=== PATIENT | female | born 1965 | race Caucasian/White ===

== ENCOUNTER → 2023-07-09 11:56 | Outpatient (REF) | payer OTHER, SELFPAY | LOC: WDC 11:56 | PROVIDERS: ATTENDING PHYSICIAN Nurse Practitioner Primary Care | DX: Z12.31 Encounter for screening mammogram for malignant neoplasm of breast (principal) | CPT/HCPCS: 77063; 77067 ==

== ENCOUNTER 2023-08-05 10:26 | Emergency (ER) | payer OTHER, SELFPAY ==
[2023-08-05 10:34] VITALS: BP 121/84
[2023-08-05] MEDS: MOTRIN 600 MG PO (12:45)
--- NOTE | 2023-08-05 13:21 | ED.MUSCINJ ---
HPI-Injury
General
Chief Complaint: Fall
Source: patient
Exam Limitations: none
Time Seen by Provider: 08/05/23 11:35
History of Present Illness-Injury
Initial Injury comments:
58-year-old female presents after fall sustained down the steps this morning. She slid down a couple steps and has left rib and left elbow pain. No significant headache. No loss of consciousness. No abdominal pain. No shortness of breath.
Past History
Past History
ED Past Medical History: Other (Migraine headache, intussusception, gastric bypass, kidney stone, previous nephrostomy, status post cholecystectomy, Anemia)
ED Past Surgical History: Urological and Other (Intussusception, gastric bypass)
Social History
Tobacco: Smoker (Social)
Alcohol: None
Personal:
Living: with family
Employment: Employed
Family History
Family History: Other (Migraine ); Negative Diabetes, Hypertension or CAD
Phy Exam
Physical Exam
Physical Exam:
General: Well-appearing female no acute respiratory distress
HEENT: Normocephalic atraumatic
Heart: Regular rate and rhythm no murmur
Lungs: Clear no wheeze breath sounds heard throughout
Abdomen soft nontender nondistended
Extremities: No cyanosis
Musculoskeletal exam: Patient is tender of left posterior lateral ribs and left elbow
Injury Course
Orders/Labs/Results
Orders:
Orders
08/05/23 11:30
CR Ribs-left 3 Vw W/pa Chest Urgent
Comment:
Reason For Exam: fall, injury,L rib pain
08/05/23 11:40
CR Elbow - Left Min 3 Views Urgent
Comment:
Reason For Exam: fall
08/05/23 12:38
Ibuprofen [Motrin] 600 mg .ROUTE .STK-MED ONE
08/05/23 12:43
Ibuprofen [Motrin] 600 mg PO NOW STA
MDM/Problems Addressed
Differential Diagnosis Includes:
Mechanical fall with left posterior rib pain and left elbow pain. Consider contusion versus fracture
X-rays of left ribs and left elbow were personally visualized and are negative for acute finding. Patient reassured. Ibuprofen or Tylenol for contusion. Stable for discharge
*Critical Care Note
Total Time (30-74mins, 75-104mins- exclusive of procedures): Not Applicable
ED Attending Note
-
Portions of this chart may have been created with voice recognition software.� Occasional wrong word or��sound alike� substitutions may have occurred due to the inherent limitations of voice recognition software.
Discharge Plan
Departure
Patient Disposition: Home (Routine Discharge)
Date of Disposition: 08/05/23
Time of Disposition: 13:23
Patient with high blood pressure during this ER visit?: No
Discharge Problem:
Contusion
Instructions: Contusion (DC)
Prescriptions:
No Action
dextroamphetamine-amphetamine [Adderall] 20 MG tablet
20 mg PO TID
acetaminophen 325 MG tablet
650 mg PO Q4HPRN PRN (Reason: Pain)
polyethylene glycol 3350 17 GRAMS powder in packet
17 grams PO PRN PRN (Reason: Constipation)
bupropion HCl 150 MG tablet sustained-release 12 hr
300 mg PO DAILY
cetirizine 10 MG tablet
10 mg PO HS
montelukast 10 MG tablet
10 mg PO DAILY
propranolol 20 MG tablet
20 mg PO PRN PRN (Reason: anxiety)
fluoxetine 20 MG capsule
40 mg PO DAILY
Referrals:
Elvis Sapp MD [Family Provider] -
Activity Restrictions/Additional Instructions:
Rest. Use ibuprofen or Tylenol. Avoid heavy lifting peer return if worse otherwise follow-up with your family doctor
Interventions
Interventions:
*Risk Screen - Suicide Last Done: 06/25/24 10:34
*General Assessment Last Done: 08/05/23 10:34
*Neglect/Abuse Screening Last Done: 08/05/23 10:34
ED- Fall Risk Assessment Last Done: 08/05/23 11:35
ED-Musculoskeletal Assessment Last Done: 08/05/23 11:35
ED- Neurological Assessment Last Done: 08/05/23 11:35
ED-Skin Assessment Last Done: 08/05/23 11:35
Discharge Date and Time
Print Language: ITALIAN
[2023-08-05 13:30] VITALS: BP 125/80
== END 2023-08-05 13:32 | disposition home or self-care (01) ==
LOC: EMR 10:26
PROVIDERS: EMERGENCY PHYSICIAN Emergency Medicine; FAMILY PHYSICIAN Internal Medicine Geriatric Medicine
DX: S50.02XA Contusion of left elbow, initial encounter (principal); R07.81 Pleurodynia; W10.9XXA Fall (on) (from) unspecified stairs and steps, initial encounter; G43.909 Migraine, unspecified, not intractable, without status migrainosus; D64.9 Anemia, unspecified; F17.200 Nicotine dependence, unspecified, uncomplicated; Z87.442 Personal history of urinary calculi; Z98.84 Bariatric surgery status; Z90.49 Acquired absence of other specified parts of digestive tract; Z88.6 Allergy status to analgesic agent; Z88.5 Allergy status to narcotic agent; Z88.8 Allergy status to other drugs, medicaments and biological substances
CPT/HCPCS: 99284; 71101; 73080

== ENCOUNTER → 2023-08-12 08:23 | Outpatient (REF) | payer OTHER, SELFPAY | LOC: RAD 08:23 | PROVIDERS: ATTENDING PHYSICIAN Internal Medicine Geriatric Medicine | DX: R07.81 Pleurodynia (principal) | CPT/HCPCS: 71046; 71100 ==

== ENCOUNTER → 2024-06-08 14:03 | Outpatient (REF) | payer OTHER, SELFPAY | LOC: HWRAD 14:03 | PROVIDERS: ATTENDING PHYSICIAN Nurse Practitioner Primary Care | DX: R22.42 Localized swelling, mass and lump, left lower limb (principal); Z91.81 History of falling; R31.29 Other microscopic hematuria; Z80.52 Family history of malignant neoplasm of bladder | CPT/HCPCS: 76770; 76882 ==

== ENCOUNTER → 2024-07-21 09:50 | Outpatient (REF) | payer OTHER, SELFPAY | LOC: HWWDC 09:50 | PROVIDERS: ATTENDING PHYSICIAN Obstetrics & Gynecology Gynecology; FAMILY PHYSICIAN Nurse Practitioner Primary Care | DX: Z78.0 Asymptomatic menopausal state (principal); Z12.31 Encounter for screening mammogram for malignant neoplasm of breast | CPT/HCPCS: 77063; 77067; 77080 ==

== ENCOUNTER → 2024-08-05 09:39 | Outpatient (REF) | payer OTHER, SELFPAY | LOC: WDC 09:39 | PROVIDERS: ATTENDING PHYSICIAN Obstetrics & Gynecology Gynecology; FAMILY PHYSICIAN Nurse Practitioner Primary Care | DX: R92.8 Other abnormal and inconclusive findings on diagnostic imaging of breast (principal) | CPT/HCPCS: 77065 ==

== ENCOUNTER 2024-10-08 09:47 | Outpatient (RCR) | payer OTHER, SELFPAY ==
[2024-09-28] MEDS: VENOFER 110 MG IV (10:23)
[2024-09-28 10:37] VITALS: BP 136/62
[2024-09-28 12:00] VITALS: BP 131/61
[2024-10-01] MEDS: VENOFER 110 MG IV (10:11)
[2024-10-01 10:14] VITALS: BP 142/69
[2024-10-01 11:40] VITALS: BP 136/57
[2024-10-05 10:00] VITALS: BP 128/81
[2024-10-05] MEDS: VENOFER 110 MG IV (10:07)
[2024-10-08 10:15] VITALS: BP 161/98
[2024-10-08] MEDS: VENOFER 110 MG IV (10:38)
[2024-10-08 11:45] VITALS: BP 149/73
== END 2024-10-08 12:14 | disposition home or self-care (01) ==
LOC: OID 09:47
PROVIDERS: ATTENDING PHYSICIAN Nurse Practitioner Primary Care
DX: E61.1 Iron deficiency (principal); D75.839 Thrombocytosis, unspecified; E55.9 Vitamin D deficiency, unspecified; Z98.84 Bariatric surgery status
CPT/HCPCS: 96365; J1756